=== PATIENT | female | born 1970 | race Caucasian/White ===

== ENCOUNTER → 2017-08-11 | Outpatient (CLI) | payer BC | END | disposition home or self-care (01) | LOC: KCIC MAMMO 17:38 | DX: Z12.31 Encounter for screening mammogram for malignant neoplasm of breast (principal) | CPT/HCPCS: 77067 ==

== ENCOUNTER → 2017-08-20 | Outpatient (CLI) | payer BC | END | disposition home or self-care (01) | LOC: KCIC US 08:00 | DX: N64.89 Other specified disorders of breast (principal) | CPT/HCPCS: 76641 ==

== ENCOUNTER → 2020-12-29 | Outpatient (CLI) | payer BC ==
--- NOTE | 2020-12-29 16:51 | KCIC ---
Bilateral digital screening mammograms: Reason for examination: Routine screening. Comparison: Mammogram from 08/11/2017. Interpretation was made with the benefit of CAD. FINDINGS: Breast density: Category B. There are scattered areas of fibroglandular density. No new suspicious mass, malignant appearing calcifications, or architectural distortion is seen. Ther e are tiny oval circumscribed benign masses in both breasts which are stable. IMPRESSION: No evidence of malignancy. Recommend routine screening. Assessment: BI-RADS 2. Benign findings. Recommendation: Routine screening mammograms. This patient's information has been entered into a reminder system for the patient to be notified wit h the results of her examination and a target date for the next mammogram. Electronically signed by: Toyin Gonzalez MD (12/29/2020 4:49 PM) [email or web address]
== END ==
LOC: KCIC MAMMO 09:56
PROVIDERS: ATTEND Family Medicine
DX: Z12.31 Encounter for screening mammogram for malignant neoplasm of breast (principal)
CPT/HCPCS: 77067